=== PATIENT | female | born 1950 | race Caucasian/White ===

== ENCOUNTER 2021-11-25 10:07 | Emergency (ER) | payer MEDICARE, BC, SELFPAY ==
[2021-11-25 10:11] VITALS: BP 127/74; PULSE 70; RESP 16; TEMP 36.2; O2SAT 95; BMI 22.1
--- NOTE | 2021-11-25 10:47 | CRLHL7_ITS ---
For Patients: As a result of the Century Cures Act, medical imaging exams and procedure reports are released immediately into your electronic medical record. You may view this report before your referring provider. If you have questions, please contact your health care provider. INDICATION: Leg pain and swelling. TECHNIQUE: Ultrasound venous duplex lower right extremity. Compression venous exam was performed using ruvalcaba-scale, color Doppler, and spectral Doppler analysis. COMPARISON: None. FINDINGS: Deep veins: Sonographic imaging demonstrates the right common femoral, deep femoral, superficial femoral, popliteal, posterior tibial and the contralateral left common femoral veins to be fully compressible with normal color Doppler blood flow. Superficial veins: Greater saphenous vein is fully compressible. Soft tissues: No popliteal cyst. Anechoic structure in the right groin measures 2.7 x 1.3 x 2.6 cm and is probably a fluid collection. IMPRESSION: Normal right lower extremity venous ultrasound, no sign of deep venous thrombosis. Dictated by Darell Meadows MD @ 11/25/2021 12:29:12 PM (Electronically Signed)
--- NOTE | 2021-11-25 10:47 | ED_ITS ---
HPI - General Adult General Time Seen by Provider: 10:49 Date Seen: 11/25/21 Chief complaint: Extremity Pain/Injury, Lower Stated complaint: Right leg pain Time Seen by Provider: 11/25/21 10:25 Source: patient and family Mode of arrival: ambulatory Limitations: no limitations History of Present Illness HPI narrative: 71-year-old female who comes in today complaining of right leg pain. This is been going on about 3 or 4 days. Prior to this, she tripped coming out of a restaurant. She did not fall, she did have a little bit of ankle pain after that and wrapped the ankle. That has gotten better now she has pain of the calf and proximal lower leg as well as around the knee and distal thigh. She has not noted any swelling, redness, or warmth to the area. She denies any other falls or injury. She has no back pain or buttock pain. Pain is worse with standing and walking. She has taken Tylenol for this. She denies chest pain or shortness of breath. She denies numbness or tingling of the leg. She is concerned about a possible blood clot. Related Data Home Medications Medication Instructions Recorded Confirmed sertraline 100 mg tablet 100 mg DAILY 11/25/21 Allergies Allergy/AdvReac Type Severity Reaction Status Date / Time No Known Drug Allergies Allergy Verified 11/25/21 10:17 Review of Systems Status of ROS: Reports: 10 or more systems reviewed and unremarkable except as noted in History and below [facility] Medical History (Updated 11/25/21 @ 11:59 by Ever Morales MD) Anxiety Surgical History (Updated 11/25/21 @ 10:19 by Holli Murillo RN) History of toe surgery Social History Smoking Status: Never smoker Do you use any of these nicotine containing products: None Second hand tobacco smoke exposure: No How often do you have a drink containing alcohol: never AUDIT-C Alcohol total score: 0 Non-prescribed substance use: denies use service: No Exam Narrative: Exam Narrative: General: well nourished , NAD Head: Atraumatic and normocephalic ENT: External ears and external nose are normal Eyes: Conjunctiva clear, pupils are equal reactive, external ocular motions are intact Neck: Full spontaneous range of motion of the neck Lungs: No respiratory distress Musculoskeletal: Mild tenderness of the right proximal lower leg. No joint effusion of the knee right knee or ankle. Anterior and posterior compartments are soft. Mild tenderness of the popliteal fossa. No redness or warmth. Straight leg raise is negative. Neurologic: No gross focal neurologic deficits Skin: No rashes Psych: Mood and affect are appropriate Const: Vital Signs, click to edit/add: Vital Signs - 24 hr 11/25/21 10:11 Temperature 97.2 F L Pulse Rate [Right Pulse Oximeter] 70 Respiratory Rate 16 Blood Pressure [Ri ght Upper Arm] 127/74 Pulse Oximetry 95 Oxygen Delivery Me thod Room Air Course Course Hospital Course: Patient seen and examined, prior records reviewed. Differential diagnosis includes but not limited to strain, sprain, radiculopathy, DVT, compartment syndrome. Patient presents with right lower leg pain for the last 3 or 4 days after mild stumble. On exam here, there are no joint effusions, no redness, warmth, or pain with passive movement of the ankle or knee to suggest septic arthritis or crystal arthropathy. Compartments are soft. No low back or buttock pain, this could represent atypical sciatic or radiculopathy but less likely. Ultrasound is ordered as patient is concerned about DVT, clinically I think this is unlikely but she could have a ruptured Gunderson's cyst causing her symptoms. If ultrasound is negative, continue symptom management and follow-up primary care. Reevaluation(s) Reevaluation #1: Ultrasound does not demonstrate any DVT. No popliteal cyst. There is a fluid collection in the right groin, this was examined and does not have any tenderness or erythema to suggest abscess, may be a seroma, it is not contiguous with the underlying vasculature and does not represent aneurysm or pseudoaneurysm. Continue symptomatic management of the leg pain and follow-up with primary care. Vital Signs Vital signs: Initial Vital Signs Temperature 97.2 F L 11/25/21 10:11 Temperature Source Temporal Artery Scan 11/25/21 10:11 Pulse Rate 70 11/25/21 10:11 Respiratory Rate 16 11/25/21 10:11 Blood Pressure 127/74 11/25/21 10:11 Blood Pressure Mean 91 11/25/21 10:11 Blood Pressure Position Sitting 11/25/21 10:11 Pulse Oximetry 95 11/25/21 10:11 Oxygen Delivery Method 11/25/21 10:11 Vital Signs Temperature 97.2 F L 11/25/21 10:11 Pulse Rate 70 11/25/21 10:11 Respiratory Rate 16 11/25/21 10:11 Blood Pressure 127/74 11/25/21 10:11 Pulse Oximetry 95 11/25/21 10:11 Oxygen Delivery Method 11/25/21 10:11 Temperature 97.2 F L 11/25/21 10:11 Pulse Rate 70 11/25/21 10:11 Respiratory Rate 16 11/25/21 10:11 Blood Pressure 127/74 11/25/21 10:11 Pulse Oximetry 95 11/25/21 10:11 Oxygen Delivery Method 11/25/21 10:11 Medical Decision Making Medical Records Medical records reviewed: Yes I reviewed the patient's medical records Lab Data Lab results reviewed: Yes I reviewed the patient's lab results Imaging Data Venous US: Attestation: I have reviewed the pertinent imaging results. Radiologist's impression: Soft tissues: No popliteal cyst. Anechoic structure in the right groin measures 2.7 x 1.3 x 2.6 cm and is probably a fluid collection. IMPRESSION: Normal right lower extremity venous ultrasound, no sign of deep venous thrombosis. Discharge Plan Discharge Clinical Impression: Pain in right lower leg Patient Disposition: Home, Self-Care Condition: Stable Instructions: Leg Pain (ED) Additional Instructions: Weight-bearing as tolerated. Take Tylenol and ibuprofen as needed for pain. Follow-up with your primary care doctor this week for further evaluation and treatment. Ice or heat for comfort Activity Level: Activity as Tolerated Discharge Diet: Regular Prescriptions: No Action sertraline 100 mg tablet 100 mg DAILY Label Comments: TAKE ONE TABLET BY MOUTH ONE TIME DAILY Follow Up/Referrals: Elizabeth Morgan DO [Primary Care Provider] - Stand Alone Forms: MyHealth Info Instructions
== END 2021-11-25 12:50 | disposition home or self-care (01) ==
PROVIDERS: Emergency Provider Family Medicine; PCP Family Medicine
DX: M79.661 Pain in right lower leg (principal); W18.40XA Slipping, tripping and stumbling without falling, unspecified, initial encounter
CPT/HCPCS: 93971; 99284